=== PATIENT | male | born 1960 | race Caucasian/White ===

== ENCOUNTER 2025-07-20 08:00 | Day surgery (SDC) | payer BC, MEDICARE ==
[2025-07-18 12:07] VITALS: BMI 35.2
[2025-07-20] MEDS ORDERED: PROPOFOL 40 ML ONE (08:45)
[2025-07-20] MEDS ORDERED: Rocuronium Bromide 10 MG/ML (10ML VIAL) ONE (08:46)
[2025-07-20] MEDS ORDERED: Lidocaine 1% PF 5 ML VIAL ONE (08:46)
[2025-07-20 09:05] LABS: Hematocrit 39.5 % (38.8-50.0); Hemoglobin 13.7 g/dL (13.5-17.5)
[2025-07-20] MEDS ORDERED: AFRIN NASAL MIST 15 ML BOT ONE (09:10)
[2025-07-20] MEDS ORDERED: Lidocaine 1% w/Epinephrine 1:200K 30 ML VIAL ONE (09:20)
[2025-07-20] MEDS ORDERED: Bacitracin 1 PK ONE (09:20)
[2025-07-20 09:24] LABS: Anion Gap 13 mmol/L (10-20); BUN (Urea Nitrogen) 17 mg/dL (8.4-25.7); Calc. Creatinine Clearance 138 mL/min (70-130); Calcium 9.1 mg/dL (7.8-10.44); Carbon Dioxide 24 mmol/L (23-31); Chloride 104 mmol/L (98-107); Glucose 114 mg/dL (80-115); Potassium 3.6 mmol/L (3.5-5.1); Sodium 137 mmol/L (136-145)
[2025-07-20] MEDS ORDERED: SUGAMMADEX SODIUM 200 MG/2 ML VIAL ONE (10:06)
[2025-07-20] MEDS ORDERED: Ondansetron PF 4 MG/2 ML Vial ONE (10:06)
[2025-07-20] MEDS ORDERED: Oxymetazoline HCl 0.05% (15 ML) ONE (10:09)
[2025-07-20] MEDS ORDERED: Hydrocodone-Acetamin 15 ML UDCUP ONE (13:20)
== END 2025-07-20 13:30 | disposition home or self-care (01) ==
LOC: CSHSDC 08:00
PROVIDERS: ATTEND Otolaryngology Plastic Surgery within the Head & Neck
DX: J34.2 Deviated nasal septum (principal); J34.3 Hypertrophy of nasal turbinates; J32.8 Other chronic sinusitis; J30.89 Other allergic rhinitis; J30.81 Allergic rhinitis due to animal (cat) (dog) hair and dander; J30.1 Allergic rhinitis due to pollen; E78.00 Pure hypercholesterolemia, unspecified; Z79.899 Other long term (current) drug therapy
CPT/HCPCS: 30520; 30802; 31253; 31256; 31267; 61782; 80048; 85014; 85018; J1100; J2704; 36415; J3010